=== PATIENT | male | born 1995 | race American Indian/Alaskan Native ===

== ENCOUNTER 2018-01-18 03:11 | Emergency (ER) | payer SELFPAY ==
[2018-01-18 04:44] VITALS: BP 146/99
--- NOTE | 2018-01-18 06:15 | Emergency Department Report ---
ED Male HPI - General Chief complaint: Urogenital-Male Stated complaint: RASH Time Seen by Provider: 01/18/18 05:55 Source: patient Mode of arrival: Ambulatory Limitations: No Limitations - History of Present Illness Initial comments: This is a 22 y.o. male that presents with painful bumps in genital area for 2 days. Patient have a history of HSV2 and ran out of medication. States he has not established a primary care provider to manage disease. Reports feeling tingling sensation 1 week ago but no visual lesions. Denies discharge, frequency , urgency, pelvic pain, and back pain. MD Complaint: other (painful rash to genital area) -: days(s) (2) Location: penis (painful bumps on penis) Radiation: none Severity: moderate, severe Severity scale (0 -10): 8 Quality: burning Consistency: constant Improves with: none Worsens with: none denies other symptoms - Related Data Sexually active: Yes Previous Rx's Medication Instructions Recorded Last Taken Type Acyclovir [Zovirax Cap] 200 mg PO Q4H #50 capsule 10/23/13 Unknown Rx Doxycycline [Vibramycin CAP] 100 mg PO BID #20 capsule 08/31/14 Unknown Rx Acetaminophen/Codeine [Tylenol #3] 1 tab PO Q6H PRN #15 tab 11/21/15 Unknown Rx Acyclovir [Zovirax Cap] 400 mg PO TID #30 cap 11/21/15 Unknown Rx Acyclovir [Zovirax Cap] 400 mg PO 5XD #70 cap 01/08/16 Unknown Rx Ibuprofen [Motrin 800 MG tab] 800 mg PO Q8HR PRN #30 tablet 01/08/16 Unknown Rx Valacyclovir HCl [Valtrex] 1,000 mg PO BID 10 Days #20 tablet 01/18/18 Unknown Rx Allergies Allergy/AdvReac Type Severity Reaction Status Date / Time No Known Allergies Allergy Verified 01/08/16 13:42 ED Review of Systems ROS: Stated complaint: RASH Other details as noted in HPI Constitutional: denies: chills, fever Respiratory: denies: cough, shortness of breath, wheezing Cardiovascular: denies: chest pain, palpitations Gastrointestinal: denies: abdominal pain, nausea, vomiting, diarrhea Genitourinary: other (bumps on penile shaft). denies: urgency, dysuria, frequency, hematuria, discharge, testicular pain, testicular mass Musculoskeletal: denies: back pain, joint swelling, arthralgia, myalgia Neurological: denies: headache, weakness, numbness, paresthesias Psychiatric: denies: anxiety, depression ED Past Medical Hx - Past Medical History Hx Psychiatric Treatment: Yes (bipolar) Additional medical history: genital herpes - Surgical History Additional Surgical History: tonsillectomy - Social History Smoking Status: Current Every Day Smoker Substance Use Type: None - Medications Home Medications: Home Medications Medication Instructions Recorded Confirmed Last Taken Type Acyclovir [Zovirax Cap] 200 mg PO Q4H #50 capsule 10/23/13 05/06/14 Unknown Rx Doxycycline [Vibramycin CAP] 100 mg PO BID #20 capsule 08/31/14 Unknown Rx Acetaminophen/Codeine [Tylenol #3] 1 tab PO Q6H PRN #15 tab 11/21/15 Unknown Rx Acyclovir [Zovirax Cap] 400 mg PO TID #30 cap 11/21/15 Unknown Rx Acyclovir [Zovirax Cap] 400 mg PO 5XD #70 cap 01/08/16 Unknown Rx Ibuprofen [Motrin 800 MG tab] 800 mg PO Q8HR PRN #30 tablet 01/08/16 Unknown Rx Valacyclovir HCl [Valtrex] 1,000 mg PO BID 10 Days #20 tablet 01/18/18 Unknown Rx ED Physical Exam - General Limitations: No Limitations General appearance: alert, in no apparent distress - Respiratory Respiratory exam: Present: normal lung sounds bilaterally. Absent: respiratory distress, wheezes, rales, rhonchi, stridor, accessory muscle use - Cardiovascular Cardiovascular Exam: Present: regular rate, normal rhythm, normal heart sounds. Absent: systolic murmur, diastolic murmur, rubs, gallop - GI/Abdominal GI/Abdominal exam: Present: soft, normal bowel sounds. Absent: distended, tenderness, guarding, rebound, rigid, organomegaly, mass - exam: Present: normal inspection, circumcision. Absent: testicular tenderness, urethral discharge, scrotal swelling, vertical testicular lie External exam: Present: lesions (multiple 2-3 mm vesicles on penile foreskin). Absent: swelling, lacerations, ecchymosis, bleeding - Neurological Exam Neurological exam: Present: alert, oriented X3, normal gait - Psychiatric Psychiatric exam: Present: normal affect, normal mood - Skin Skin exam: Present: warm, dry, intact, normal color. Absent: rash ED Course Vital Signs 01/18/18 01/18/18 04:33 05:28 Temperature 97.8 F 97.8 F Pulse Rate 93 H 85 Respiratory 18 18 Rate Blood Pressure 146/99 146/99 O2 Sat by Pulse 96 99 Oximetry ED Medical Decision Making - Medical Decision Making This is a 22 y.o. male presents with vesicular lesions to penis x 2 days. Patient was examined by me. History of HSV2. No acute signs of distress noted. Vitals stable. Given valacyclovir 1,000 mg po once in ER. Start valtrax 1000 mg po bid x 10 days. Discharged home in stable condition. F/U with PCP or Health Department for management of disease. Critical care attestation.: If time is entered above; I have spent that time in minutes in the direct care of this critically ill patient, excluding procedure time. ED Disposition Clinical Impression: Genital herpes simplex type 2 Disposition: - TO HOME OR SELFCARE Is pt being admited?: No Does the pt Need Aspirin: No Condition: Stable Instructions: Genital Herpes Simplex (ED), Safe Sex (ED) Additional Instructions: Continue safe sexual intercourse. Follow up with Primary Care Provider or health department for management of care. Prescriptions: Valacyclovir HCl [Valtrex] 1,000 mg PO BID 10 Days #20 tablet Referrals: PRIMARY CARE, [Primary Care Provider] - 3-5 Days [facility] [Outside] - 3-5 Days [facility] [Outside] - 3-5 Days [facility] [Outside] - 3-5 Days Time of Disposition: 06:24 Print Language: MALAY
[2018-01-18] MEDS ORDERED: VALTREX PO ONE (06:24)
== END 2018-01-18 06:29 | disposition home or self-care (01) ==
LOC: ED 03:11
DX: A60.01 Herpesviral infection of penis (principal); F17.200 Nicotine dependence, unspecified, uncomplicated
CPT/HCPCS: 99282

== ENCOUNTER 2019-04-05 23:10 | Emergency (ER) | payer OTHER ==
[2019-04-06] MEDS ORDERED: ROCEPHIN IM ONE (00:40)
[2019-04-06] MEDS ORDERED: ZITHROMAX PO ONE (00:40)
[2019-04-06] MEDS ORDERED: XYLOCAINE 1% MPF 5 mL INFILTRATI ONE (00:40)
[2019-04-06 01:18] LABS: Bilirubin,Urine NEG (Negative); Blood,Urine NEG (Negative); Color,Urine Yellow (Yellow); Mucus,Urine FEW /HPF; Protein,Urine <15 mg/dL mg/dL (Negative); Urobilinogen,Urine < 2.0 mg/dL (<2.0)
[2019-04-06 01:19] LABS: WBC,Urine < 1.0 /HPF (0.0-6.0)
--- NOTE | 2019-04-06 01:38 | Emergency Department Report ---
ED Male HPI - General Chief complaint: Urogenital-Male Stated complaint: HERPES OUTBREAK Time Seen by Provider: 04/06/19 00:30 Source: patient Mode of arrival: Ambulatory Limitations: No Limitations - History of Present Illness Initial comments: Patient is a 24-year-old -[place] male with no past medical history who presents to the ED with complaint of acute onset persistence of dysuria and purulent penile discharge and ulcerated penile lesions for the last 3 days. Patient denies fever, chills, testicular pain, hematuria, urinary frequency and urgency, dizziness, nausea and vomiting, low back pain, abdominal pain or back pain. Patient admits to having unprotected sexual intercourse about 2 weeks ago and oral sexual intercourse 5 days ago. MD Complaint: penile discharge, dysuria, other (penile lesions) -: Sudden, days(s) (3) Location: penis Radiation: none Severity scale (0 -10): 5 Quality: aching, burning, sharp Consistency: constant Improves with: none Worsens with: urination, palpation, movement, sexual intercourse new sexual partner denies other symptoms, discharge, rash, dysuria. denies: swelling, mass, urinary retention, blood in urine, fever, nausea/vomiting, incontinence, other - Related Data Sexually active: Yes (Unprotected) Previous Rx's Medication Instructions Recorded Last Taken Type Acyclovir [Zovirax Cap] 200 mg PO Q4H #50 capsule 10/23/13 Unknown Rx DOXYCYCLINE Hyclate [Vibramycin 100 mg PO BID #20 capsule 08/31/14 Unknown Rx CAP] Acetaminophen/Codeine [Tylenol #3] 1 tab PO Q6H PRN #15 tab 11/21/15 Unknown Rx Acyclovir [Zovirax Cap] 400 mg PO TID #30 cap 11/21/15 Unknown Rx Acyclovir [Zovirax Cap] 400 mg PO 5XD #70 cap 01/08/16 Unknown Rx Ibuprofen [Motrin 800 MG tab] 800 mg PO Q8HR PRN #20 tablet 04/06/19 Unknown Rx Sulfamethoxazole/Trimethoprim 1 each PO Q12H #20 tablet 04/06/19 Unknown Rx [Bactrim DS TAB] Valacyclovir HCl [Valtrex] 1,000 mg PO Q8H 10 Days #30 tablet 04/06/19 Unknown Rx Allergies Allergy/AdvReac Type Severity Reaction Status Date / Time Milk Containing Products Allergy Vomiting Verified 04/05/19 23:22 ED Review of Systems ROS: Stated complaint: HERPES OUTBREAK Other details as noted in HPI Constitutional: denies: chills, fever Eyes: denies: eye pain, eye discharge, vision change ENT: denies: ear pain, throat pain Respiratory: denies: cough, shortness of breath, wheezing Cardiovascular: denies: chest pain, palpitations Endocrine: no symptoms reported Gastrointestinal: denies: abdominal pain, nausea, diarrhea Genitourinary: urgency, dysuria, frequency, discharge, other (penile ulcerated rashes) Musculoskeletal: denies: back pain, joint swelling, arthralgia Skin: rash, lesions (penile lesions) Neurological: denies: headache, weakness, paresthesias Psychiatric: denies: anxiety, depression Hematological/Lymphatic: denies: easy bleeding, easy bruising ED Past Medical Hx - Past Medical History Previous Medical History?: Yes Hx Psychiatric Treatment: Yes (bipolar) Additional medical history: genital herpes - Surgical History Past Surgical History?: Yes Additional Surgical History: tonsillectomy - Social History Smoking Status: Never Smoker Substance Use Type: None - Medications Home Medications: Home Medications Medication Instructions Recorded Confirmed Last Taken Type Acyclovir [Zovirax Cap] 200 mg PO Q4H #50 capsule 10/23/13 05/06/14 Unknown Rx DOXYCYCLINE Hyclate [Vibramycin 100 mg PO BID #20 capsule 08/31/14 Unknown Rx CAP] Acetaminophen/Codeine [Tylenol #3] 1 tab PO Q6H PRN #15 tab 11/21/15 Unknown Rx Acyclovir [Zovirax Cap] 400 mg PO TID #30 cap 11/21/15 Unknown Rx Acyclovir [Zovirax Cap] 400 mg PO 5XD #70 cap 01/08/16 Unknown Rx Ibuprofen [Motrin 800 MG tab] 800 mg PO Q8HR PRN #20 tablet 04/06/19 Unknown Rx Sulfamethoxazole/Trimethoprim 1 each PO Q12H #20 tablet 04/06/19 Unknown Rx [Bactrim DS TAB] Valacyclovir HCl [Valtrex] 1,000 mg PO Q8H 10 Days #30 tablet 04/06/19 Unknown Rx ED Physical Exam - General Limitations: No Limitations General appearance: alert, in no apparent distress - Head Head exam: Present: atraumatic, normocephalic, normal inspection - Eye Eye exam: Present: normal appearance, PERRL, EOMI. Absent: scleral icterus, conjunctival injection, nystagmus Pupils: Present: normal accommodation - ENT ENT exam: Present: normal exam, normal orophraynx, mucous membranes moist, TM's normal bilaterally, normal external ear exam - Neck Neck exam: Present: normal inspection, full ROM - Respiratory Respiratory exam: Present: normal lung sounds bilaterally. Absent: respiratory distress, wheezes, rales, rhonchi, stridor, chest wall tenderness, accessory muscle use, decreased breath sounds, prolonged expiratory - Cardiovascular Cardiovascular Exam: Present: regular rate, normal rhythm, normal heart sounds. Absent: systolic murmur, diastolic murmur, rubs, gallop - GI/Abdominal GI/Abdominal exam: Present: soft, normal bowel sounds. Absent: tenderness, rebound, hyperactive bowel sounds, hypoactive bowel sounds, organomegaly, mass, bruit - Rectal Rectal exam: Present: deferred - exam: Present: urethral discharge, other (Thick yellow penile discharge with ulcerated penile lesion on the shaft). Absent: testicular tenderness, scrotal swelling, vertical testicular lie External exam: Present: erythema, lesions (ulcerated penile lesions with discharge) - Extremities Exam Extremities exam: Present: normal inspection, normal capillary refill - Back Exam Back exam: Present: normal inspection, full ROM. Absent: tenderness, CVA tenderness (R), CVA tenderness (L), muscle spasm, paraspinal tenderness, vertebral tenderness - Neurological Exam Neurological exam: Present: alert, oriented X3, CN II-XII intact, normal gait, reflexes normal - Psychiatric Psychiatric exam: Present: normal affect, normal mood - Skin Skin exam: Present: warm, dry, intact, normal color, rash (erythematous ulcerated lesions on penile shaft with purulent discharge) ED Course - Reevaluation(s) Reevaluation #1: 04/06/19 01:40 Patient is alert and oriented 3 and is not in distress, but anxious. Urinalysis was ordered as well as Chlamydia and gonorrhea tests. Patient was treated in the ED for subsequent coronary and chlamydia and discharged home on antiviral medications for genital herpes outbreak. Patient was advised to follow-up at the [facility] for further testing and evaluation. Patient was also advised to have his sexual partner treated at the health department. The patient otherwise return to the ED immediately if symptoms get worse. ED Medical Decision Making - Medical Decision Making Patient is alert and oriented 3 and is not in distress, but anxious. Urinalysis was ordered as well as Chlamydia and gonorrhea tests. Patient was treated in the ED for subsequent coronary and chlamydia and discharged home on antiviral medications for genital herpes outbreak. Patient was advised to follow-up at the [facility] for further testing and evaluation. Patient was also advised to have his sexual partner treated at the health department. The patient otherwise return to the ED immediately if sym ptoms get worse. - Differential Diagnosis Chlamydia/Gonorrhea; Genital Herpes; Acute UTI Critical care attestation.: If time is entered above; I have spent that time in minutes in the direct care of this critically ill patient, excluding procedure time. ED Disposition Clinical Impression: STD (sexually transmitted disease), Urethritis, Acute urinary tract infection Genital herpes Qualifiers: Herpes simplex infection site: penis Qualified Code(s): A60.01 - Herpesviral infection of penis Disposition: - TO HOME OR SELFCARE Is pt being admited?: No Does the pt Need Aspirin: No Condition: Stable Instructions: Urinary Tract Infection in Men (ED), Sexually Transmitted Diseases (ED), Chlamydia Infection (ED), Genital Herpes Simplex (ED) Additional Instructions: Take medications with food, drink plenty of fluids and follow up with [facility] for further tests and treatment. Ensure that your sexual partner gets treated at the [facility] as well. Return to the ED immediately if symptoms get worse. Prescriptions: Sulfamethoxazole/Trimethoprim [Bactrim DS TAB] 1 each PO Q12H #20 tablet Ibuprofen [Motrin 800 MG tab] 800 mg PO Q8HR PRN #20 tablet PRN Reason: Pain Valacyclovir HCl [Valtrex] 1,000 mg PO Q8H 10 Days #30 tablet Referrals: [facility] [Outside] - 3-5 Days Forms: STI Treatment and Prevention Time of Disposition: 01:44 Print Language: LATVIAN
== END 2019-04-06 02:01 | disposition home or self-care (01) ==
LOC: ED 23:10
DX: N39.0 Urinary tract infection, site not specified (principal); A60.01 Herpesviral infection of penis; F31.9 Bipolar disorder, unspecified; Z90.89 Acquired absence of other organs; Z91.011 Allergy to milk products; Z79.1 Long term (current) use of non-steroidal anti-inflammatories (NSAID); Z79.899 Other long term (current) drug therapy
CPT/HCPCS: 81001; 96372; 99283; J0696

== ENCOUNTER 2021-09-10 15:30 | Emergency (ER) | payer SELFPAY ==
[2021-09-10] MEDS ORDERED: ONDANSETRON 4 MG/2 ML INJ IV ONE (15:49)
[2021-09-10] MEDS ORDERED: SODIUM CHLORIDE 0.9% 1000 ML 1,000 ML IV ONE (15:49)
[2021-09-10 16:25] LABS: Basophils % (Auto) 0.2 % (0.0-1.8); Eosinophils # (Auto) 0.2 K/mm3 (0.0-0.4); Eosinophils % (Auto) 2.7 % (0.0-4.3); Hemoglobin 14.9 gm/dl (11.8-15.2); Lymphocytes # (Auto) 2.4 K/mm3 (1.2-5.4); Lymphocytes % (Auto) 37.7 % (13.4-35.0); Mean Corpuscular HGB Conc 32 % (32-34); Mean Corpuscular Volume 87 fl (84-94); Monocytes # (Auto) 0.8 K/mm3 (0.0-0.8); Monocytes % (Auto) 12.3 % (0.0-7.3); Platelet Count 304 K/mm3 (140-440); Red Blood Count 5.27 M/mm3 (3.65-5.03); Red Cell Distribution Width 13.1 % (13.2-15.2)
[2021-09-10 16:44] LABS: Alanine Aminotransferase 52 units/L (7-56); Albumin 4.4 g/dL (3.9-5); BUN/Creatinine Ratio 12; Blood Urea Nitrogen 11 mg/dL (9-20); Calcium 9.5 mg/dL (8.4-10.2); Hemolysis Index 8
--- NOTE | 2021-09-10 17:35 | XRay Report ---
CHEST 2 VIEWS INDICATION / CLINICAL INFORMATION: Cough, chest pain. COMPARISON: None available. FINDINGS: SUPPORT DEVICES: None. HEART / MEDIASTINUM: No significant abnormality. LUNGS / PLEURA: No significant pulmonary or pleural abnormality. No pneumothorax. ADDITIONAL FINDINGS: No significant additional findings. IMPRESSION: 1. No acute findings. Signer Name: Brian Diane MD Signed: 09/10/2021 5:31 PM Workstation Name: [id number]
--- NOTE | 2021-09-10 18:35 | Emergency Department Report ---
ED General Adult HPI - General Chief complaint: Nausea/Vomiting/Diarrhea Stated complaint: NAUSEA/VOMITING, GENERAL ILLNESS Time Seen by Provider: 09/10/21 15:49 Source: EMS Mode of arrival: Ambulatory Limitations: No Limitations - History of Present Illness Initial comments: Patient is a 26-year-old male presents emergency room complaints of nausea and vomiting that began 2 days ago. He has associated cough, chest discomfort, chills. He reports that he was at his family members baby shower and began feeling sick later on in the evening. He states he is having normal bowel movements. He denies any diarrhea. He states he is experiencing some abdominal cramping. He denies any shortness of breath, pleuritic pain, leg swelling, calf pain, hemoptysis, urinary symptoms. PMHx HTN but he reports he is not sure what he supposed to be taking for his blood pressure but is not currently taking it. Severity scale (0 -10): 4 - Related Data Previous Rx's Medication Instructions Recorded Last Taken Type Acyclovir [Zovirax Cap] 200 mg PO Q4H #50 capsule 10/23/13 Unknown Rx DOXYCYCLINE Hyclate [Vibramycin 100 mg PO BID #20 capsule 08/31/14 Unknown Rx CAP] Acetaminophen/Codeine [Tylenol #3] 1 tab PO Q6H PRN #15 tab 11/21/15 Unknown Rx Acyclovir [Zovirax Cap] 400 mg PO TID #30 cap 11/21/15 Unknown Rx Acyclovir [Zovirax Cap] 400 mg PO 5XD #70 cap 01/08/16 Unknown Rx Ibuprofen [Motrin 800 MG tab] 800 mg PO Q8HR PRN #20 tablet 04/06/19 Unknown Rx Sulfamethoxazole/Trimethoprim 1 each PO Q12H #20 tablet 04/06/19 Unknown Rx [Bactrim DS TAB] Valacyclovir HCl [Valtrex] 1,000 mg PO Q8H 10 Days #30 tablet 04/06/19 Unknown Rx Benzonatate [Tessalon Perles] 100 mg PO Q8HR PRN #12 capsule 09/10/21 Unknown Rx Ondansetron [Zofran Odt] 4 mg PO Q8HR PRN #12 tab.rapdis 09/10/21 Unknown Rx guaiFENesin ER [Mucinex ER] 600 mg PO Q12H #14 tablet.er 09/10/21 Unknown Rx Allergies Allergy/AdvReac Type Severity Reaction Status Date / Time Milk Containing Products Allergy Vomiting Verified 04/05/19 23:22 ED Review of Systems ROS: Stated complaint: NAUSEA/VOMITING, GENERAL ILLNESS Other details as noted in HPI Comment: All other systems reviewed and negative ED Past Medical Hx - Past Medical History Hx Psychiatric Treatment: Yes (bipolar) Additional medical history: genital herpes - Surgical History Additional Surgical History: tonsillectomy - Social History Smoking Status: Never Smoker Substance Use Type: None - Medications Home Medications: Home Medications Medication Instructions Recorded Confirmed Last Taken Type Acyclovir [Zovirax Cap] 200 mg PO Q4H #50 capsule 10/23/13 05/06/14 Unknown Rx DOXYCYCLINE Hyclate [Vibramycin 100 mg PO BID #20 capsule 08/31/14 Unknown Rx CAP] Acetaminophen/Codeine [Tylenol #3] 1 tab PO Q6H PRN #15 tab 11/21/15 Unknown Rx Acyclovir [Zovirax Cap] 400 mg PO TID #30 cap 11/21/15 Unknown Rx Acyclovir [Zovirax Cap] 400 mg PO 5XD #70 cap 01/08/16 Unknown Rx Ibuprofen [Motrin 800 MG tab] 800 mg PO Q8HR PRN #20 tablet 04/06/19 Unknown Rx Sulfamethoxazole/Trimethoprim 1 each PO Q12H #20 tablet 04/06/19 Unknown Rx [Bactrim DS TAB] Valacyclovir HCl [Valtrex] 1,000 mg PO Q8H 10 Days #30 tablet 04/06/19 Unknown Rx Benzonatate [Tessalon Perles] 100 mg PO Q8HR PRN #12 capsule 09/10/21 Unknown Rx Ondansetron [Zofran Odt] 4 mg PO Q8HR PRN #12 tab.rapdis 09/10/21 Unknown Rx guaiFENesin ER [Mucinex ER] 600 mg PO Q12H #14 tablet.er 09/10/21 Unknown Rx ED Physical Exam - General Limitations: No Limitations General appearance: alert, in no apparent distress - Head Head exam: Present: atraumatic, normocephalic - Eye Eye exam: Present: normal appearance - ENT ENT exam: Present: mucous membranes moist - Respiratory Respiratory exam: Present: normal lung sounds bilaterally. Absent: respiratory distress, wheezes, rales, rhonchi, stridor, chest wall tenderness, accessory mu scle use, decreased breath sounds, prolonged expiratory - Cardiovascular Cardiovascular Exam: Present: regular rate, normal rhythm, normal heart sounds. Absent: systolic murmur, diastolic murmur, rubs, gallop - GI/Abdominal GI/Abdominal exam: Present: soft, normal bowel sounds. Absent: distended, tenderness, guarding, rebound, rigid - Neurological Exam Neurological exam: Present: alert, oriented X3 - Psychiatric Psychiatric exam: Present: normal affect, normal mood - Skin Skin exam: Present: warm, dry, intact ED Course Vital Signs 09/10/21 09/10/21 15:34 18:57 Temperature 98 F Pulse Rate 100 H 69 Respiratory 16 16 Rate Blood Pressure 150/95 142/79 [Left] O2 Sat by Pulse 95 98 Oximetry ED Medical Decision Making - Lab Data Result diagrams: 09/10/21 16:00 09/10/21 16:00 Lab Results 09/10/21 09/10/21 09/10/21 Range/Units 16:00 16:00 16:00 WBC 6.4 (4.5-11.0) K/mm3 RBC 5.27 H (3.65-5.03) M/mm3 Hgb 14.9 (11.8-15.2) gm/dl Hct 46.0 H (35.5-45.6) % MCV 87 (84-94) fl MCH 28 (28-32) pg MCHC 32 (32-34) % RDW 13.1 L (13.2-15.2) % Plt Count 304 (140-440) K/mm3 Lymph % (Auto) 37.7 H (13.4-35.0) % [place] % (Auto) 12.3 H (0.0-7.3) % Eos % (Auto) 2.7 (0.0-4.3) % Baso % (Auto) 0.2 (0.0-1.8) % Lymph # (Auto) 2.4 (1.2-5.4) K/mm3 [place] # (Auto) 0.8 (0.0-0.8) K/mm3 Eos # (Auto) 0.2 (0.0-0.4) K/mm3 Baso # (Auto) 0.0 (0.0-0.1) K/mm3 Seg Neutrophils % 47.1 (40.0-70.0) % Seg Neutrophils # 3.0 (1.8-7.7) K/mm3 Sodium 141 (137-145) mmol/L Potassium 4.6 (3.6-5.0) mmol/L Chloride 103.2 (98-107) mmol/L Carbon Dioxide 27 (22-30) mmol/L Anion Gap 15 mmol/L BUN 11 (9-20) mg/dL Creatinine 0.9 (0.8-1.3) mg/dL Estimated GFR > 60 ml/min BUN/Creatinine Ratio 12 % Glucose 87 (75-100) mg/dL Calcium 9.5 (8.4-10.2) mg/dL Total Bilirubin 0.60 (0.1-1.2) mg/dL AST 21 (5-40) units/L ALT 52 (7-56) units/L Alkaline Phosphatase 60 (35-129) units/L Troponin T < 0.010 (0.00-0.029) ng/mL Total Protein 7.4 (6.3-8.2) g/dL Albumin 4.4 (3.9-5) g/dL Albumin/Globulin Ratio 1.5 % Lipase 17 (13-60) units/L HCG, Qual Negative (Negative) Vital Signs 09/10/21 09/10/21 15:34 18:57 Temperature 98 F Pulse Rate 100 H 69 Respiratory 16 16 Rate Blood Pressure 150/95 142/79 [Left] O2 Sat by Pulse 95 98 Oximetry - EKG Data EKG shows normal: sinus rhythm, axis, intervals, ST-T waves Rate: normal - EKG Data 09/10/21 18:42 low voltage no STEMI - Radiology Data Radiology results: report reviewed Ordering Physician: ERNESTO PETERS Date of Service: 09/10/21 Procedure(s): XR chest routine 2V Accession Number(s): [id number] cc: ERNESTO PETERS Fluoro Time In Minutes: CHEST 2 VIEWS INDICATION / CLINICAL INFORMATION: Cough, chest pain. COMPARISON: None available. FINDINGS: SUPPORT DEVICES: None. HEART / MEDIASTINUM: No significant abnormality. LUNGS / PLEURA: No significant pulmonary or pleural abnormality. No pneumothorax. ADDITIONAL FINDINGS: No significant additional findings. IMPRESSION: 1. No acute findings. Signer Name: Brian Diane MD Signed: 09/10/2021 5:31 PM Workstation Name: [email or web address] Transcribed By: MIGUEL Dictated By: Brian Diane MD Electronically Authenticated By: Brian Diane MD Signed Date/Time: 09/10/211730 DD/ 30 TD/TT: - Medical Decision Making Patient is a 26-year-old male presents emergency room complaints of nausea and vomiting that began 2 days ago. He has associated cough, chest discomfort, chil ls. He reports that he was at his family members baby shower and began feeling sick later on in the evening. He states he is having normal bowel movements. He denies any diarrhea. He states he is experiencing some abdominal cramping. He denies any shortness of breath, pleuritic pain, leg swelling, calf pain, hemoptysis, urinary symptoms. PMHx HTN but he reports he is not sure what he supposed to be taking for his blood pressure but is not currently taking it. VSS. no abd ttp on exam. EKG with low voltage otherwise normal. CXR: 1. No acute findings. Labs are normal. Troponin is negative. Symptoms could be related to viral cause versus gastritis. Patient given 1 L normal saline and Zofran while the emergency department was able to tolerate p.o. intake and had no further episodes of vomiting. Patient was feeling much better and ready to go home. Advised patient Please take medication as prescribed as needed. Increase your fluid intake. Follow-up with your primary care doctor. Return to emergency room for any new or worsening symptoms. Recommend outpatient COVID- 19 testing and if positive will need to self quarantine for 10 days from onset of symptoms. Critical care attestation.: If time is entered above; I have spent that time in minutes in the direct care of this critically ill patient, excluding procedure time. ED Disposition Clinical Impression: Cough, Elevated blood pressure reading Nausea & vomiting Qualifiers: Vomiting type: unspecified Qualified Code(s): R11.2 - Nausea with vomiting, unspecified Chest pain Qualifiers: Chest pain type: unspecified Qualified Code(s): R07.9 - Chest pain, unspecified Disposition: 01 HOME / SELF CARE / HOMELESS Is pt being admited?: No Does the pt Need Aspirin: No Condition: Stable Instructions: Nausea and Vomiting, Adult, [id number] Additional Instructions: Please take medication as prescribed as needed. Increase your fluid intake. Follow-up with your primary care doctor. Return to emergency room for any new or worsening symptoms. Recommend outpatient COVID-19 testing and if positive will need to self quarantine for 10 days from onset of symptoms. Prescriptions: guaiFENesin ER [Mucinex ER] 600 mg PO Q12H #14 tablet.er Benzonatate [Tessalon Perles] 100 mg PO Q8HR PRN #12 capsule PRN Reason: cough Ondansetron [Zofran Odt] 4 mg PO Q8HR PRN #12 tab.rapdis PRN Reason: nausea/vomiting Referrals: PRIMARY CAREMD [Primary Care Provider] - 3-[address] BOYCE MD [Staff Physician] - 3-5 Days [facility] [Provider Group] - 3-5 Days Forms: Work/School Release Form(ED) Time of Disposition: 18:50 Print Language: URDU HEART Score - HEART Score History: Slightly suspicious EKG: Normal Age: < 45 Risk factors: 1-2 risk factors Troponin: Troponin T < 0.010 ng/mL (0.00-0.029) 09/10/21 16:00 Troponin: < normal limit HEART Score: 1
[2021-09-10 18:58] VITALS: BP 142/79
--- NOTE | 2021-09-11 10:24 | Electrocardiograph Report ---
[facility] Test Date: 2021-09-10 Test Time: 18:05:08 Pat Name: IBAN GALVAN Department: Room: Gender: M [employer] Operator: SIDNEY : 1995 Requested By: ELLIE YOUNG Order Number: [id number] Reading MD: Martin Elena Measurements Intervals [place] Rate: 74 P: 29 UT: 148 QRS: 7 QRSD: 86 T: 31 QT: 371 QTc: 413 Interpretive Statements Sinus rhythm nonspecific st-t No previous ECG available for comparison Electronically Signed On 09-11-2021 10:24:08 EST by Martin Elena
== END 2021-09-10 18:58 | disposition home or self-care (01) ==
LOC: ED 15:30
DX: R50.9 Fever, unspecified (principal); R11.2 Nausea with vomiting, unspecified; R07.89 Other chest pain; Z90.89 Acquired absence of other organs; Z79.899 Other long term (current) drug therapy
CPT/HCPCS: 36415; 71046; 80053; 83690; 84484; 84703; 85025; 93005; 96361; 96374; 99284; J2405; J7030; Q0162

== ENCOUNTER 2021-09-25 16:46 | Emergency (ER) | payer SELFPAY ==
[2021-09-25 18:09] VITALS: BP 143/87
[2021-09-25] MEDS ORDERED: SODIUM CHLORIDE 0.9% 1000 ML 1,000 ML IV ONE (21:21)
--- NOTE | 2021-09-25 21:54 | Emergency Department Report ---
ED General Adult HPI - General Chief complaint: High BP Stated complaint: HIGH BLOOD PRESSURE Time Seen by Provider: 09/25/21 21:20 Source: patient Mode of arrival: Ambulatory Limitations: No Limitations - History of Present Illness Initial comments: Patient 26-year-old male with history of hypertension who presents for near syncope x2 episodes over the past 3 days. Patient states cough malaise low-grade fever at home. Denies suspicious contacts or travel. Patient is not Covid immunized however. There has been no nausea no vomiting. No shortness of breath or chest pain. There is intermittent vertigo and dizziness and lightheadedness. Cough is nonproductive patient denies smoking or substance. There is no childhood asthma no cardiac disease no other symptoms. - Related Data Previous Rx's Medication Instructions Recorded Last Taken Type Acyclovir [Zovirax Cap] 200 mg PO Q4H #50 capsule 10/23/13 Unknown Rx DOXYCYCLINE Hyclate [Vibramycin 100 mg PO BID #20 capsule 08/31/14 Unknown Rx CAP] Acetaminophen/Codeine [Tylenol #3] 1 tab PO Q6H PRN #15 tab 11/21/15 Unknown Rx Acyclovir [Zovirax Cap] 400 mg PO TID #30 cap 11/21/15 Unknown Rx Acyclovir [Zovirax Cap] 400 mg PO 5XD #70 cap 01/08/16 Unknown Rx Ibuprofen [Motrin 800 MG tab] 800 mg PO Q8HR PRN #20 tablet 04/06/19 Unknown Rx Sulfamethoxazole/Trimethoprim 1 each PO Q12H #20 tablet 04/06/19 Unknown Rx [Bactrim DS TAB] Valacyclovir HCl [Valtrex] 1,000 mg PO Q8H 10 Days #30 tablet 04/06/19 Unknown Rx Benzonatate [Tessalon Perles] 100 mg PO Q8HR PRN #12 capsule 09/10/21 Unknown Rx Ondansetron [Zofran Odt] 4 mg PO Q8HR PRN #12 tab.rapdis 09/10/21 Unknown Rx guaiFENesin ER [Mucinex ER] 600 mg PO Q12H #14 tablet.er 09/10/21 Unknown Rx Allergies Allergy/AdvReac Type Severity Reaction Status Date / Time Milk Containing Products Allergy Vomiting Verified 04/05/19 23:22 ED Review of Systems ROS: Stated complaint: HIGH BLOOD PRESSURE Other details as noted in HPI Constitutional: denies: chills, fever Eyes: denies: eye pain, eye discharge, vision change ENT: congestion. denies: ear pain, throat pain Respiratory: cough. denies: shortness of breath, wheezing Cardiovascular: denies: chest pain, palpitations Endocrine: no symptoms reported Gastrointestinal: denies: abdominal pain, nausea, vomiting, diarrhea Genitourinary: denies: urgency, dysuria, frequency, hematuria Musculoskeletal: as per HPI Skin: denies: rash, lesions Neurological: weakness, vertigo. denies: headache, numbness, paresthesias, confusion Psychiatric: denies: anxiety, depression Hematological/Lymphatic: denies: easy bleeding, easy bruising ED Past Medical Hx - Past Medical History Hx Psychiatric Treatment: Yes (bipolar) Additional medical history: genital herpes - Surgical History Additional Surgical History: tonsillectomy - Social History Smoking Status: Never Smoker Substance Use Type: None - Medications Home Medications: Home Medications Medication Instructions Recorded Confirmed Last Taken Type Acyclovir [Zovirax Cap] 200 mg PO Q4H #50 capsule 10/23/13 05/06/14 Unknown Rx DOXYCYCLINE Hyclate [Vibramycin 100 mg PO BID #20 capsule 08/31/14 Unknown Rx CAP] Acetaminophen/Codeine [Tylenol #3] 1 tab PO Q6H PRN #15 tab 11/21/15 Unknown Rx Acyclovir [Zovirax Cap] 400 mg PO TID #30 cap 11/21/15 Unknown Rx Acyclovir [Zovirax Cap] 400 mg PO 5XD #70 cap 01/08/16 Unknown Rx Ibuprofen [Motrin 800 MG tab] 800 mg PO Q8HR PRN #20 tablet 04/06/19 Unknown Rx Sulfamethoxazole/Trimethoprim 1 each PO Q12H #20 tablet 04/06/19 Unknown Rx [Bactrim DS TAB] Valacyclovir HCl [Valtrex] 1,000 mg PO Q8H 10 Days #30 tablet 04/06/19 Unknown Rx Benzonatate [Tessalon Perles] 100 mg PO Q8HR PRN #12 capsule 09/10/21 Unknown Rx Ondansetron [Zofran Odt] 4 mg PO Q8HR PRN #12 tab.rapdis 09/10/21 Unknown Rx guaiFENesin ER [Mucinex ER] 600 mg PO Q12H #14 tablet.er 09/10/21 Unknown Rx ED Physical Exam - General Limitations: No Limitations General appearance: alert, in no apparent distress - Head Head exam: Present: atraumatic - Eye Eye exam: Present: normal appearance, PERRL, EOMI Pupils: Present: normal accommodation - ENT ENT exam: Present: normal orophraynx, mucous membranes moist, TM's normal bilaterally, normal external ear exam - Neck Neck exam: Present: normal inspection, full ROM. Absent: lymphadenopathy, thyromegaly - Respiratory Respiratory exam: Present: normal lung sounds bilaterally. Absent: respiratory distress, wheezes, stridor, chest wall tenderness - Cardiovascular Cardiovascular Exam: Present: regular rate, normal rhythm, normal heart sounds - GI/Abdominal GI/Abdominal exam: Present: soft, normal bowel sounds. Absent: distended, tenderness, guarding, rebound, rigid, bruit - Rectal Rectal exam: Present: deferred - Extremities Exam Extremities exam: Present: normal inspection, full ROM, normal capillary refill - Back Exam Back exam: Present: normal inspection, full ROM. Absent: CVA tenderness (R), CVA tenderness (L) - Neurological Exam Neurological exam: Present: alert, oriented X3, CN II-XII intact, normal gait, reflexes normal. Absent: motor sensory deficit - Expanded Neurological Exam Expanded Patient oriented to: Present: person, place, time Speech: Present: fluid speech Motor strength exam: RUE: 5, LUE: 5, RLE: 5, LLE: 5 Best Eye Response (Munger): (4) open spontaneously Best Motor Response (Delroy): (6) obeys commands Best Verbal Response (Munger): (2) incomprehsible sounds Munger Total: 12 - Psychiatric Psychiatric exam: Present: normal affect, normal mood - Skin Skin exam: Present: warm ED Course Vital Signs 09/25/21 18:06 Temperature 98.1 F Pulse Rate 103 H Respiratory 18 Rate Blood Pressure 143/87 O2 Sat by Pulse 98 Oximetry ED Medical Decision Making - Lab Data Result diagrams: 09/25/21 21:33 09/25/21 21:33 Labs 09/25/21 09/25/21 21:33 21:33 WBC 7.7 RBC 5.40 H Hgb 15.4 H Hct 48.2 H MCV 89 MCH 29 MCHC 32 RDW 12.8 L Plt Count 343 Lymph % (Auto) 41.6 H Tucker % (Auto) 9.6 H Eos % (Auto) 3.9 Baso % (Auto) 0.6 Lymph # (Auto) 3.2 Tucker # (Auto) 0.7 Eos # (Auto) 0.3 Baso # (Auto) 0.0 Seg Neutrophils % 44.3 Seg Neutrophils # 3.4 Sodium 140 Potassium 4.9 Chloride 102.5 Carbon Dioxide 25 Anion Gap 17 BUN 9 Creatinine 0.9 Estimated GFR > 60 BUN/Creatinine Ratio 10 Glucose 85 Calcium 10.0 Total Bilirubin 0.30 AST 20 ALT 47 Alkaline Phosphatase 61 Total Protein 7.1 Albumin 4.6 Albumin/Globulin Ratio 1.8 - Radiology Data Radiology results: report reviewed, image reviewed CHEST 2 VIEWS INDICATION: near syncope. COMPARISON: 09/10/2021 FINDINGS: SUPPORT DEVICES: None. HEART: Within normal limits. LUNGS/PLEURA: No acute air space or interstitial disease. No pneumothorax. ADDITIONAL FINDINGS: None. IMPRESSION: 1. No acute findings. Signer Name: Corky Cid MD Signed: 09/25/2021 9:50 PM Workstation Name: [id number] - Medical Decision Making Chest x-ray normal no infiltrates no opacities labs noted as above likely dehydration however patient declines IV fluids. Patient currently alert oriented x3 patient is amatory without increase in symptoms. There is no concerning hypertension at this time BP is 147/83. Plan continue to hydrate at home. Follow-up with primary care doctor in 2 to 3 days. BP log. Bring BP log to follow-up appointment. Patient verbalized agreement and understanding with discharge plan. Patient DC'd home in stable condition at this time. Critical care attestation.: If time is entered above; I have spent that time in minutes in the direct care of this critically ill patient, excluding procedure time. ED Disposition Clinical Impression: Syncope, near, Dehydration, mild Disposition: 01 HOME / SELF CARE / HOMELESS Is pt being admited?: No Does the pt Need Aspirin: No Condition: Stable Instructions: Dehydration, Adult, [id number], Rehydration, Adult, Form - Blood Pressure Record Sheet Additional Instructions: Hydrate as directed, follow-up with your primary care doctor in 2 to 3 days. Blood pressure log as directed. Return to emergency department should symptoms worsen. Referrals: COURT BOYCE MD [Staff Physician] - 3-5 Days Forms: Work/School Release Form(ED) Time of Disposition: 22:36
[2021-09-25 22:00] LABS: Alanine Aminotransferase 47 units/L (7-56); Albumin 4.6 g/dL (3.9-5); BUN/Creatinine Ratio 10; Blood Urea Nitrogen 9 mg/dL (9-20); Hemolysis Index 45
[2021-09-25 22:06] LABS: Basophils % (Auto) 0.6 % (0.0-1.8); Eosinophils # (Auto) 0.3 K/mm3 (0.0-0.4); Eosinophils % (Auto) 3.9 % (0.0-4.3); Hematocrit 48.2 % (35.5-45.6); Hemoglobin 15.4 gm/dl (11.8-15.2); Lymphocytes # (Auto) 3.2 K/mm3 (1.2-5.4); Lymphocytes % (Auto) 41.6 % (13.4-35.0); Mean Corpuscular HGB Conc 32 % (32-34); Mean Corpuscular Volume 89 fl (84-94); Monocytes # (Auto) 0.7 K/mm3 (0.0-0.8); Monocytes % (Auto) 9.6 % (0.0-7.3); Platelet Count 343 K/mm3 (140-440); Red Cell Distribution Width 12.8 % (13.2-15.2)
== END 2021-09-25 23:24 | disposition home or self-care (01) ==
LOC: ED 16:46
DX: E86.0 Dehydration (principal); F31.9 Bipolar disorder, unspecified; R55 Syncope and collapse
CPT/HCPCS: 36415; 71046; 80053; 85025; 99283